=== PATIENT | male | born 1995 | race Caucasian/White ===

== ENCOUNTER 2019-01-20 20:48 | Inpatient (IN) | payer OTHER ==
[~2019-01-20] VITALS: Ht 172.7 cm; Wt 86.5 kg
[2019-01-20 22:19] LABS: BASO % 0.3 % (0.0-2.0); GRAN # 9.3 (1.4-6.5); GRAN % 77.9 % (42.2-75.2); HEMATOCRIT 34.6 % (42.0-52.0); LYMPH # 1.9 (1.2-3.4); MEAN CELL VOLUME 90 fl (80.0-100.0); MEAN CORPUSCULAR HEMOGLOBIN 31 pg (27.0-31.0); MEAN CORPUSCULAR HGB CONC 35 g/dl (33.0-37.0); MONO # 0.7 (0.1-0.6); MONO % 5.5 % (1.7-9.3); PLATELET COUNT 209 K/mm3 (130-400); RED BLOOD COUNT 3.85 M/mm3 (4.20-5.60); REDCELL DISTRIBUTION WIDTH-CV 12.2 % (11.5-14.5)
--- NOTE | 2019-01-20 22:21 | NUR ---
Pt. to the floor via stretcher. Pt. is A&OX3, assessment complete. INT to rt. ac. patent. Pt.'s testicles are the size of a grapefuit, some external bleeding noted. Dr. Salazar in to see pt. at this time. Plan to take pt. to OR tonight.
[2019-01-20 22:23] VITALS: BP 126/71; PULSE 81; TEMP 98.8
[2019-01-21] VITALS (15 sets, daily range): BP systolic 115–139; BP diastolic 39–78; PULSE 53–81; TEMP 97.7–99.3
--- NOTE | 2019-01-21 01:15 | NUR ---
Pt returned to floor from surgery, post-op checks initiated.
--- NOTE | 2019-01-21 05:37 | NUR ---
Pt slept since returing to the floor from surgery, easily awakened, Pt has been receiving pain medication about Q3H and stated that his pain is much reduced, VS have been stable.
--- NOTE | 2019-01-21 08:59 | NUR ---
ROUNDED. NEW DRESSING APPLIED TO SCROTUM. FAUSTINO DRAINS INTACT & BLOODY DRAINAGE NOTED. SUTURES INTACT. ORDERS OBTAINED. MORPHINE SECTION BEAMER STARTED. Iv ANTIBIOTIC PER ORDERS. STAT H&h DRAWN. ORTEZ TO FIDEL. MINIMAL APPETITE.
[2019-01-21 09:10] LABS: HEMOGLOBIN 10.1 g/dl (13.5-18.0)
[2019-01-21 09:12] LABS: HEMATOCRIT 29.8 % (42.0-52.0)
--- NOTE | 2019-01-21 09:35 | NUR ---
Patient called out concerns about a reaction. called. 50IV benadryl given. swelling noted to eye, report his tounge and throat swelling. vitals taken & closely monioring
--- NOTE | 2019-01-21 10:41 | NUR ---
PATRICIO met with the patient to discuss a discharge plan. The patient lives on [address] with is , Mindy and their two kids. The patient does not use any DME and reports independence with ADLs. The patient receives all his medical and prescription needs on [address]. The patient does not have advanced directives in the EMR, and he was not interested in obtaining a DPOA-HC form. The patient plans on returning home upon discharge. There are no additional needs at this time.
--- NOTE | 2019-01-21 13:03 | NUR ---
Patient resting in bed. His at bedside. His eyes are still slightly swollen. His throat, he reports is much improved. Continue to closely monitor. He ate and did well, no problems. Naval Designer for pain management. Changed dressing to Scrotum again, he continues to have bleeding from michael drain. Scrotum continue to have edema & ecchymosis. Sutures intact & bacitracin applied to incision
--- NOTE | 2019-01-21 17:26 | NUR ---
Patient is resting comfortably in bed. is at bedside. Call light is within reach. Patient states he does not need anything at this time. Reported of to JUNI Rob
--- NOTE | 2019-01-21 18:51 | NUR ---
Patient assisted to the bathroom, passed flatus. not able to have bm, feeling constipated. New drg applied. kerlex was again saturated with blood. new kerlex & abd & mesh underwear on. He was not interested in dinner. continues with morphine review appraiser, his at bedside.
--- NOTE | 2019-01-21 21:10 | NUR ---
Pt in bed resting, some C/O pain but Pt states as tolorable. shift assessments complete, left Pt call light in reach, bed in lowest position.
[2019-01-22] VITALS (12 sets, daily range): BP systolic 130–154; BP diastolic 55–76; PULSE 77–94; TEMP 98.6–99.8
--- NOTE | 2019-01-22 00:12 | NUR ---
Changed bandages, drainage is reduced from earlier, used 2X curlex and 1X ABD pad, drainage was red and bandaages were not soaked through.
--- NOTE | 2019-01-22 05:27 | NUR ---
Pt slept after 0000 hours during the night, Pt managing his pain well, VS have remained stable.
[2019-01-22 07:06] LABS: HEMOGLOBIN 10.1 g/dl (13.5-18.0)
--- NOTE | 2019-01-22 07:10 | NUR ---
Pt resting in bed upon going in for report. Pt stated he had an ok night, pain is becoming more tolerable. States SOFT SUGAR SUPERVISOR is helping for pain control. Dressing changed at this time. Midline incision to scrotom is well approximated with bonilla intact. Janette drain x2 notes with drainage. The old dressing was blood tinged, but not saturated. New kerlix applied followed by ABD. Pt initially rated pain 3/10, after dressing change it increased to 5/10. He does have an increased C/O headache. Will look at getting some tylenol.
[2019-01-22 07:15] LABS: HEMATOCRIT 29.7 % (42.0-52.0)
--- NOTE | 2019-01-22 10:30 | NUR ---
Pt drowsy, resting in bed. Not much of an appetite, but encouraged to try and eat small items. No needs at this time, will continue to monitor
--- NOTE | 2019-01-22 12:00 | NUR ---
Dr Salazar in to see patient. Drsclaude changed at this time. Discussed activity and plan of care for the day.
--- NOTE | 2019-01-22 13:40 | NUR ---
Pt has been up moving around his room. Bed sheets changed. Tylenol given for headache. Encouraged to keep trying to eat small amounts throughout the day due to decreased appetite.
--- NOTE | 2019-01-22 15:30 | NUR ---
Pt has been up moving more in his room. Reported that his headache is gone. He is drinking shakes at this time. Dressing changed. More drainage noted to the dressing removed, most likely due to increase in activity. Pt is c/o itching, will give benadryl Report given to JUNI Rowe.
--- NOTE | 2019-01-22 19:04 | NUR ---
Patient in bed resting, family at bedside. Dressing to groin with minimal drainage at this time. FOLDER MACHINE ADJUSTER infusing per orders. Denies pain or further needs at this time. Patient has been up in room. Reported off to shift engineer.
[2019-01-23 02:55] VITALS: BP 135/55; PULSE 72; TEMP 98.9
[2019-01-23 08:00] VITALS: BP 135/56; PULSE 84
--- NOTE | 2019-01-23 08:00 | NUR ---
PATIENT IS DROWSY AND RESTING IN BED THIS MORNING. PATIENT AROUSES EASILY TO NAME. PATIENT IS A&O. VSS. BOWEL SOUNDS ACTIVE ALL FOUR QUADRANTS. PATIENT TOLERATING DIET WITHOUT ANY COMPLAINTS OF N/V. POSITIVE PEDAL PULSES EQUAL BILATERALLY. MIDLINE SCROTAL INCISION EDGES WELL APPROXIMATED AND DRESSED WITH GAUZE, KERLIX & JOCK STRAP. SMALL AMOUNTS OF OLD BLOODY DRAINAGE PRESENT ON DRESSING. SCROTAL EDEMA NOTED. FAUSTINO DRAINS X2 TO BILATERAL GROIN TO DEPENDENT DRAINAGE. ORTEZ CATHETER TO DEPENDENT DRAINAGE WITH LARGE AMOUNTS OF CLEAR, PALE-YELLOW URINE IN ORTEZ BAG. RIGHT AC TO INT. IV FLUIDS INFUSING TO LEFT WRIST IV WITH MORPHINE NEUROLOGY TECH. CALL LIGHT WITHIN REACH. PATIENT DENIES ANY NEEDS AT THIS TIME.
[2019-01-23 08:27] VITALS: BP 135/56; PULSE 84; TEMP 99.7
--- NOTE | 2019-01-23 11:07 | NUR ---
PATIENT'S JOB TRAINING SPECIALIST PUMP DISCONTINUED AND IV TO INT PER DOCTORS ORDERS. PATIENT GIVEN 1 TABLET OF PRN NORCO. WILL CONTINUE TO MONITOR.
[2019-01-23 12:35] VITALS: BP 119/58; PULSE 67; TEMP 98.8
--- NOTE | 2019-01-23 12:55 | NUR ---
PATIENT'S ORTEZ CATHETER DISCONTINUED PER DOCTORS ORDERS. 10 MLS OF SALINE ASPIRATED FROM BALLOON WITH TIP INTACT. PATIENT TOLERATED WELL. WILL CONTINUE TO MONITOR.
[2019-01-23 16:47] VITALS: BP 132/56; PULSE 65; TEMP 99
--- NOTE | 2019-01-23 19:16 | NUR ---
REPORT GIVEN TO JUNI BARAJAS.
[2019-01-23 20:00] VITALS: BP 130/70; PULSE 54; TEMP 98
--- NOTE | 2019-01-23 20:00 | NUR ---
REPORT RECEIVED. ASSUMED CARE FOR AUTOMATION TESTER. ASSESSMENT COMPLETE. VS STABLE. DENIES PAIN AT THIS TIME. DUE TO VOID-HAS VOIDED POST CATH-BUT NOT VERY MUCH. MIDLINE SCROTAL INCISION EDGES WELL APPORXIMATED-OPEN TO AIR. MODERATE AMOUNT OF SWELLING-STATES ITS MUCH BETTER THAN LAST NIGHT. FAUSTINO DRAINS TO DEPENDENT DRAINAGE. KERLEX GAUZE AND ABD UNDER SCROTUM-MINIMAL DRAINAGE-BLOODY. REMOVED JOCK STRAP-STATES HE CANT WEAR IT ANYMORE CAUSES TO MUCH PRESSURE. DID AMBULATE. DENIES NEEDS AT THIS TIME. CALL LIGHT WITHIN REACH. BED IN LOW POSITION. WHEELS LOCKED. ENCOURAGED TO CALL FOR NEED. VERBALIZES UNDERSTANDING. WILL MONITOR.
[2019-01-24] VITALS: BP 100/68; PULSE 52; TEMP 98
[2019-01-24 04:00] VITALS: BP 126/68; PULSE 71; TEMP 98.5
--- NOTE | 2019-01-24 05:50 | NUR ---
RESTED WELL THIS SHIFT. C/O SCROTAL PAIN-NORCO GIVEN AND HELPED WITH PAIN. DENIED N/V. VOIDING WITHOUT DIFFICULTY.. SWELLING HAS DECREASED FROM PREVIOUS SHIFT. MINIMAL DRAINAGE. STATES HE IS READY TO BE DISCHARGED. DENIES ANY OTHER QUESTIONS OR CONCERNS. WILL MONITOR.
[2019-01-24 07:56] VITALS: BP 136/66; PULSE 58; TEMP 98.3
--- NOTE | 2019-01-24 10:00 | NUR ---
Patient alert and oriented, answers questions appropriately. See assessment. Scrotum with swelling noted, incision with bonilla intact; edges well approximated. Janette drains in place with serosanguinous drainage noted, kerlix and mesh panties in place. C/o pain to scrotum with movement/ambulation. No other c/o at this time.
--- NOTE | 2019-01-24 10:05 | NUR ---
Dr Salazar here to see patient, see orders. [place] drains removed per Dr Salazar.
[2019-01-24 11:51] VITALS: BP 140/64; PULSE 77; TEMP 98.4
--- NOTE | 2019-01-24 12:28 | NUR ---
Discharge instructions reviewed with patient and spouse, verbalized understanding. Discharged via wheelchair to auto/home with spouse at 1225.
== END 2019-01-24 12:25 | disposition home or self-care (01) | DRG 989 ==
LOC: SURG 20:48
PROVIDERS: ADMIT Urology
PROC: 0VL Male Reproductive System, Occlusion (ICD-10-PCS; 2019-01-20)
PROC: 0VC50ZZ Extirpation of Matter from Scrotum, Open Approach (ICD-10-PCS; principal; 2019-01-20 23:00)
DX: N99.840 Postprocedural hematoma of a genitourinary system organ or structure following a genitourinary system procedure (principal); Y83.9 Surgical procedure, unspecified as the cause of abnormal reaction of the patient, or of later complication, without mention of misadventure at the time of the procedure; F17.210 Nicotine dependence, cigarettes, uncomplicated; Z98.52 Vasectomy status
CPT/HCPCS: A4216; G0378; J0696; J1170; J1200; J2270; J2405; J2704; J3010; J7120